=== PATIENT | male | born 1960 | race Caucasian/White ===

== ENCOUNTER 2019-08-29 10:12 | Emergency (ER) | payer BC ==
[2019-08-29 11:10] LABS: CREATININE 1.1 mg/dL (0.5-1.5); POTASSIUM 4.1 mmol/L (3.5-5.1)
[2019-08-29 11:15] LABS: BASOPHILS % (AUTO) 0.4 % (0.0-5.0); EOSINOPHILS % (AUTO) 0.5 % (0.0-8.0); HEMATOCRIT 45.5 % (42-54); LYMPHOCYTES % (AUTO) 23.7 % (21.0-51.0); MEAN CORPUSCULAR HEMOGLOBIN 31.3 pg (27.0-33.0); MEAN CORPUSCULAR HGB CONC 34.5 g/dL (32.0-36.0); MEAN CORPUSCULAR VOLUME 90.8 fL (79-99); PLATELET COUNT (AUTO) 197 K/uL (130-400); RED BLOOD CELL COUNT(AUTO) 5.01 MIL/uL (4.50-6.20); RED CELL DISTRIBUTION WIDTH 11.7 % (11.0-15.5); WHITE BLOOD COUNT (AUTO) 5.7 K/uL (4.8-10.8)
[2019-08-29] MEDS ORDERED: GADODIAMIDE 10 MMOL/20 ML VIAL IV ONE (12:46)
== END 2019-08-29 14:21 | disposition home or self-care (01) ==
LOC: EDH 10:12
DX: R51 Headache (principal); J34.89 Other specified disorders of nose and nasal sinuses; R42 Dizziness and giddiness; R53.1 Weakness
CPT/HCPCS: 36415; 70450; 70553; 80048; 85025; 93005; 99285; A9579